=== PATIENT | male | born 1975 | race Caucasian/White ===

== ENCOUNTER → 2017-03-04 12:37 | Outpatient (CLI) | payer BC ==
[2013-02-01 11:38] VITALS: BMI 29.6
[~2017-03-04 12:37] MED LIST: NORCO 10/325 TA1 TA1
== END | disposition home or self-care (01) ==
LOC: D.MRI 12:37
DX: M25.522 Pain in left elbow (principal)

== ENCOUNTER → 2017-08-23 10:01 | Outpatient (CLI) | payer BC ==
[2013-02-01 11:38] VITALS: BMI 29.6
== END | disposition home or self-care (01) ==
LOC: D.MRI 10:01
DX: M75.122 Complete rotator cuff tear or rupture of left shoulder, not specified as traumatic (principal)

== ENCOUNTER 2017-09-08 10:19 | Day surgery (SDC) | payer BC ==
--- NOTE | ~2017-09-08 | OP ---
PATIENT NAME: DALE BRUNO MEDICAL RECORD: [id number] LOCATION:[facility] ADMISSION DATE: SURGEON: LEIF FELIPE MD DATE OF OPERATION: 09/08/2017 DIAGNOSES: Left shoulder SLAP lesion with impingement syndrome and acromioclavicular arthritis. POSTOPERATIVE DIAGNOSES: Left shoulder SLAP lesion with impingement syndrome and acromioclavicular arthritis plus rotator cuff tear of the left shoulder. PROCEDURES: 1. Left shoulder arthroscopic SLAP repair. 2. Left shoulder arthroscopic rotator cuff repair. 3. Left shoulder arthroscopic distal clavicle excision done through separate arthroscopic incision - 1 cm. 4. Arthroscopic subacromial decompression with acromioplasty and bursectomy. SURGEON: Leif Felipe MD ANESTHESIA: General. INTRAOPERATIVE COMPLICATIONS: None. SUMMARY OF PATHOLOGIC FINDINGS: The patient had a SLAP lesion that essentially went from the 9 o'clock to the 1 o'clock position, requiring 3 anchor fixation. The rotator cuff tear was laminar in nature, but was on the superior aspect. It was large enough that it also required fixation. The patient had a downward sloping acromion as well as acromioclavicular arthritis. OPERATIVE SUMMARY IN DETAIL: After obtaining the appropriate preoperative orthopedic surgery consent as well as anesthetic consultation, evaluation, and clearance, the patient was brought to the operating room and placed on the operating table in supine position. After general laryngeal mask was administered, the patient was placed in a right lateral decubitus position. All pressure points were well padded to include down leg peroneal pad as well as axillary roll. The patient was held firmly to the operating table using the vacuum pack suction system. Left upper extremity and shoulder were prepped and draped in routine sterile fashion. Arm was held in the [employer] traction boom at 30 degrees of forward flexion and 30 degrees of abduction with 10 pounds of traction laterally. Arthroscopy was established in the glenohumeral joint from a posterior portal. Anterior portal was established in the anterior safe interval. Diagnostic arthroscopy revealed the above findings. Accessory tertiary portal was placed. The anterior and superior aspects of the glenoid was treated with an arthroscopic resector to get down to a bleeding bone for reapproximation. Three 3.0 PushLocks were utilized with doubled FiberTape for excellent reapproximation. This resulted in reapproximation of the entire SLAP lesion with good fixation of the bicipital labral component. Having completed this, attention was turned to the subacromial space. While on the subacromial space, the [employer] tissue ablation system was utilized to denude the undersurface of the acromion of all soft tissue elements and release the coracoacromial ligament. A 5-0 barrel bur was used to perform acromioplasty at the level of acromioclavicular joint. Lastly, through the separate arthroscopic anterior portal, distal clavicle was excised for 1 cm and OPERATIVE REPORT [id number] DALE BRUNO then, after taking down all of the subacromial bursa, rotator cuff described above was discovered. Decortication of the supraspinatus footprint was carried out with the arthroscopic resector followed by an inverted #2 FiberTape, which was anchored laterally with a 4.75 SwiveLock from [employer]. Having completed this, arthroscopy portals were closed in routine interrupted fashion using 4-0 Prolene. Sterile dressings were applied. The patient was awakened and taken to recovery room in stable condition. All final needle and sponge counts were correct. TRANSINT:[id number] Voice Confirmation ID: [id number] DOCUMENT ID: [id number] DESTINEE MTZ, LEIF RESENDIZ at 1447 CC: [id number] DICTATION DATE: 09/11/17 1057 [employer] MACHINE OPERATOR: 09/11/17 1427 [facility] 09/08/17 [id number] [place] [address]
[~2017-09-08 10:19] MED LIST changes: +ZOLOFT50 MG PO
[2017-09-08] MEDS ORDERED: TESTOSTERON200 MG/ML IM (11:10)
[2017-09-08 11:16] VITALS: BP 169/110; BMI 29.2
[2017-09-08] MEDS ORDERED: HYDROCODONE-APA1 TAB PO (14:59)
== END 2017-09-08 17:09 | disposition home or self-care (01) ==
LOC: D.OPS 10:19 → D.PAN 12:30 → D.OPS 12:30
DX: M75.42 Impingement syndrome of left shoulder (principal); M75.102 Unspecified rotator cuff tear or rupture of left shoulder, not specified as traumatic; M19.012 Primary osteoarthritis, left shoulder; I10 Essential (primary) hypertension; Z01.812 Encounter for preprocedural laboratory examination; S43.432A Superior glenoid labrum lesion of left shoulder, initial encounter

== ENCOUNTER → 2019-11-19 07:50 | Outpatient (CLI) | payer BC ==
[~2019-11-19 07:50] MED LIST changes: +HYDROCODONE-APA1 TAB PO; +TESTOSTERON200 MG/ML IM
== END | disposition home or self-care (01) ==
LOC: D.NM 07:50
PROVIDERS: ATTEND Registered Nurse Emergency
DX: R19.7 Diarrhea, unspecified (principal)